=== PATIENT | female | born 1995 | race Two or more races ===

== ENCOUNTER 2020-04-27 16:09 | Emergency (ER) | payer OTHER ==
[~2020-04-27] VITALS: Ht 165.1 cm; Wt 54.4 kg
[2020-04-27 16:23] VITALS: BP 110/70
[2020-04-27] MEDS ORDERED: IBUPROFEN 600 MG TABLET PO ONE (17:00)
[2020-04-27] MEDS ORDERED: FLUORESCEIN SODIUM OPHTH 1 EA STRIP OP ONE (17:00)
[2020-04-27] MEDS ORDERED: TETRACAINE HCL 0.5% OPHTALMIC 15 ML BOTTLE OP ONE (17:00)
[2020-04-27] MEDS ORDERED: FLUORESCEIN SODIUM OPHTH 1 EA STRIP ONE (17:08)
[2020-04-27] MEDS ORDERED: IBUPROFEN 600 MG TABLET ONE (17:09)
--- NOTE | 2020-04-27 18:36 | NUR ---
Patient left accompanied by [employer] in no distress.
== END 2020-04-27 18:36 ==
LOC: ER 16:15
DX: S05.11XA Contusion of eyeball and orbital tissues, right eye, initial encounter (principal); S20.223A Contusion of bilateral back wall of thorax, initial encounter; S09.8XXA Other specified injuries of head, initial encounter; M62.830 Muscle spasm of back; F41.9 Anxiety disorder, unspecified; F90.9 Attention-deficit hyperactivity disorder, unspecified type; Z88.0 Allergy status to penicillin; Y08.89XA Assault by other specified means, initial encounter; Y93.89 Activity, other specified; Y92.89 Other specified places as the place of occurrence of the external cause; Y99.8 Other external cause status
CPT/HCPCS: 71045-TC; 72074-TC; 84703-TC